=== PATIENT | female | born 1985 | race Caucasian/White ===

== ENCOUNTER 2020-04-17 11:55 | Emergency (ER) | payer OTHER ==
[~2020-04-17] VITALS: Ht 160 cm; Wt 65.8 kg
[~2020-04-17 11:55] MED LIST: ALBUTEROL2.5 MG/0.5 NEB; AMOXICILLIN500 M2 PO; BACTROBAN OINT22 GM PO; BUSPIRONE5 MG PO; CIPRO500 MG PO; DIFLUCAN150 MG PO; DOXEPIN10 MG PO; FLEXERIL10 MG PO; HYDROCODONE BIT1 T11 PO; HYDROXYZINE HCL25 M1 PO; IBU800 M1 PO; IBU800 MG PO; LAMOTRIGINE25 M1 PO; MEDROL DOSEPAK4 MG PO; MOTRIN800 MG PO; Motrin,Rufen800 MG PO; NAPROSYN500 MG PO; NITROFURANTOIN100 M2 PO; NKHM; NORCO 325 MG-51 TAB PO; NORCO 5-325 TA1 EACH PO; PEN-V500 MG PO; PEN-VEE K500 MG PO; PENICILLIN VK500 MG PO; PENICILLIN-VK500 MG PO; PERCOCET 325 MG1 TA2 PO; PERIDEX 480 ML480 ML PO; PRENATAL ONE DA1 TAB PO; PRENATAL1 TA1 PO; PRENATAL1 TA3 PO; SERTRALINE HCL50 MG PO; TORADOL10 MG PO; TRAMADOL HCL50 MG PO; VALIUM10 MG PO; VICODIN 500 MG-1 TAB PO; VOLTAREN50 M1 PO; ZOFRAN ODT4 MG SL
[2020-04-17] MEDS ORDERED: CLEOCIN HCL150 MG PO (13:07)
== END 2020-04-17 12:14 | disposition home or self-care (01) ==
LOC: ED 11:55
DX: L02.31 Cutaneous abscess of buttock (principal)